=== PATIENT | male | born 1985 | race Caucasian/White ===

== ENCOUNTER 2016-11-25 13:14 | Emergency (ER) | payer OTHER ==
[~2016-11-25] VITALS: Ht 188 cm; Wt 93.0 kg
--- NOTE | 2016-11-25 13:41 | ED UPPER/LOWER EXTREMITY COMPL ---
History of Present Illness General Chief Complaint: Shoulder Injury Stated Complaint: INJURY TO L SHOULDER Source: patient Exam Limitations: no limitations Vital Signs & Intake/Output Vital Signs & Intake/Output ED Intake and Output 11/26 0000 11/25 1200 Intake Total 0 Output Total Balance 0 Intake, IV 0 Patient 205 lb Weight Weight Reported by Patient Measurement Method Allergies Coded Allergies: No Known Allergies (12/13/15) Reconcile Medications Ibuprofen 800 MG TABLET 1 TAB PO TID PRN pain Methocarbamol (Robaxin) 500 MG TABLET 1 TAB PO TID PRN pain Triage Note: PT TO ED FOR L SHOULDER PAIN AFTER MOVING COUCH THIS MORNING. Triage Nurses Notes Reviewed? yes Onset: Abrupt Duration: hour(s): (2), constant, changing over time, continues in ED, getting worse Timing: single episode today Severity: mild, moderate Severity Numbers: 7 Pain/Injury Location: Left: Shoulder. Method of Injury: heavy lifting No Modifying Factors: none Associated Symptoms: none HPI: 31-year-old male witha past medical history presents complaining of pain in his left shoulder that started earlier today. Patient reports that pain started while he was lifting a heavy couch she suddenly felt a pop in the left shoulder and the pain started shortly after that. He denies any direct trauma to the area. Pain is located in the anterior aspect of the left shoulder and radiates down the arm into the second third and fourth digits. It is worse with any type of range of motion of the left upper extremity. He is not taking any medicine for the pain. He rates the pain as a 7 out of 10. He denies any chest pain, shortness of breath, numbness, tingling, fever, weakness, or direct trauma to the area. He denies any previous shoulder injuries. (NEDRA BRITO PA-C) Past History Travel History Traveled to [place] past 21 day No Medical History Any Pertinent Medical History? see below for history Neurological: NONE EENT: NONE Cardiovascular: NONE Respiratory: CHILDHOOD ASTHMA Gastrointestinal: NONE Hepatic: NONE Renal: NONE Musculoskeletal: NONE Psychiatric: NONE Endocrine: NONE Blood Disorders: NONE Cancer(s): NONE Tetanus Vaccine: 12/14/15 Surgical History Surgical History: none Psychosocial History What is your primary language Yoruba Tobacco Use: Never used ETOH Use: occasional use Illicit Drug Use: marijuana Family History Hx Contributory? No (NEDRA BRITO PA-C) Review of Systems Review of Systems Constitutional: Reports: no symptoms. EENTM: Reports: no symptoms. Respiratory: Reports: no symptoms. Cardiovascular: Reports: no symptoms. Gastrointestinal/Abdominal: Reports: no symptoms. Genitourinary: Reports: no symptoms. Musculoskeletal: Reports: see HPI, joint pain (left shoudler ), muscle pain (left shoudler ). Skin: Reports: no symptoms. Neurological/Psychological: Reports: no symptoms. Hematologic/Endocrine: Reports: no symptoms. Immunological: Reports: no symptoms. All Other Systems: Reviewed and Negative (ALISHA VALLADARES,NEDRA) Physical Exam Physical Exam General Appearance: well developed/nourished, no apparent distress, alert, awake Head: atraumatic, normal appearance Eyes: Bilateral: normal appearance, PERRL, EOMI. Ears, Nose, Throat: normal pharynx, normal ENT inspection, hearing grossly normal Neck: normal inspection, supple, full range of motion (pain with lateral flexion ) Cardiovascular/Respiratory: normal breath sounds, normal peripheral pulses, regular rate/rhythm, no respiratory distress Peripheral Pulses: 2+ radial (R), 2+ radial (L), 2+ dorsalis pedis (R), 2+ dorsalis pedis (L) Back: normal inspection, normal range of motion, no vertebral tenderness Shoulder Left: normal range of motion (intact with pain), normal inspection, tenderness (anterior deltoid), soft tissue tenderness (anterior deltoid) Shoulder Right: normal range of motion, normal inspection Elbow Left: normal range of motion, normal inspection Elbow Right: normal range of motion, normal inspection Hand Left: normal inspection, normal range of motion Hand Right: normal inspection, normal range of motion Neurologic/Tendon: normal sensation, normal motor functions, normal tendon functions, responds to pain, no evidence tendon injury, no pulse deficit Skin: intact, normal color, warm/dry Lymphatic: no anterior cervical rebel Comments: Pain with palpation of the left anterior deltoid, left trapezius, and left cervical paraspinous muscles. Full range of motion of the left shoulder is intact with pain during abduction. No swelling, erythema, bruising or gross deformity. Neurovascular supply is intact. Full range of motion of the left elbow and left wrist. (ALISHA VALLADARES,NEDRA) Progress Differential Diagnosis: contusion, dislocation, fracture, sprain, tendon injury, cervical radiculopathy, muscle strain Plan of Care: Orders Procedure Date/time Status Durable Medical Equipment 11/25 1419 Active Patient had x-ray of the left shoulder to rule out a fracture. Otherwise symptoms appear to be muscular. He'll be treated with Ibuprofen and Robaxin with a shoulder immobilizer. X-ray of the left shoulder is within normal limits. Results discussed with patient. He'll be discharged home with ibuprofen and Robaxin along with the shoulder immobilizer. He will follow up with a primary care doctor this week or return to emergency department any concerns. pt will also be referred to ortho. Discussed all results with patient and he agrees with the plan. (NEDRA BRITO PA-C) Diagnostic Imaging: Viewed by Me: Radiology Read. Comments: PATIENT: LUZ MARINA AGUILAR PRESENT AGE: 31 PATIENT ACCOUNT NO: [id number] : 87 LOCATION: [facility] ORDERING PHYSICIAN: NEDRA BRITO PA-C SERVICE DATE: 11/25/16 EXAM TYPE: RAD - XRY-SHOULDER COMPLETE-LEFT EXAMINATION: XR SHOULDER, LEFT CLINICAL INFORMATION: Left shoulder pain after trauma. COMPARISON: None TECHNIQUE: AP external rotation, Grashey, scapular Y, and axillary views of the left shoulder. FINDINGS: Bones have normal alignment at the intact glenohumeral and acromioclavicular joints. No acute fracture, subluxation, arthritic disease or focal soft tissue swelling. There is a bone island of the proximal humeral metaphysis and of the glenoid, as well. The visualized left lung apex is normal. IMPRESSION: No acute findings at the left shoulder. DICTATED BY: ELVIRA GARZA MD DATE/TIME DICTATED:11/25/161419 DIRECTOR OF CONSTRUCTION:RASHEL DATE/TIME TRANSCRIBED:11/25/161419 CONFIDENTIAL, DO NOT COPY WITHOUT APPROPRIATE AUTHORIZATION. <Electronically signed in Other Vendor System> (NEDRA BRITO PA-C) Departure Departure Disposition: HOME OR SELF CARE Condition: Stable Clinical Impression Primary Impression: Left anterior shoulder pain Referrals: PATIENT HAS NO PRIMARY CARE DR (PCP/Family) KRISHAN AVILES,STACY Arriaza. Additional Instructions: rest, avoid heavy lifting, bending or excessive physical actiivty. Apply ice/ heat and use shoulder immobilzer. Ibuprofen and robaxin as directed. make a follwo up appt to review all results of todays visit. return to the emergency department with any concerns. Departure Forms: Customer Survey General Discharge Information Prescriptions: Current Visit Scripts Ibuprofen 1 TAB PO TID PRN pain #30 TAB Methocarbamol (Robaxin) 1 TAB PO TID PRN pain #30 TAB (NEDRA BRITO PA-C) PA/PARTS SALVAGER Co-Sign Statement Statement: ED Attending supervision documentation- [] I saw and evaluated the patient. I have also reviewed all the pertinent lab results and diagnostic results. I agree with the findings and the plan of care as documented in the PA's/PARTS SALVAGER's documentation. [X] I have reviewed the ED Record and agree with the PA's/PARTS SALVAGER's documentation. [] Additions or exceptions (if any) to the PAs/PARTS SALVAGER's note and plan are summarized below: [] (JASSI AVILES,BUD)
--- NOTE | 2016-11-25 14:25 | RADIOLOGY REPORT ---
EXAMINATION: XR SHOULDER, LEFT CLINICAL INFORMATION: Left shoulder pain after trauma. COMPARISON: None TECHNIQUE: AP external rotation, Grashey, scapular Y, and axillary views of the left shoulder. FINDINGS: Bones have normal alignment at the intact glenohumeral and acromioclavicular joints. No acute fracture, subluxation, arthritic disease or focal soft tissue swelling. There is a bone island of the proximal humeral metaphysis and of the glenoid, as well. The visualized left lung apex is normal. IMPRESSION: No acute findings at the left shoulder.
[2016-11-25] MEDS ORDERED: IBUPROFEN800 M1 PO (14:34)
[2016-11-25] MEDS ORDERED: ROBAXIN500 M1 PO (14:34)
[2016-11-25 14:57] VITALS: BP 126/73
== END 2016-11-25 15:01 ==
LOC: ERH 13:14
DX: M25.512 Pain in left shoulder (principal)
CPT/HCPCS: 73030-LT

== ENCOUNTER 2017-10-07 23:23 | Emergency (ER) | payer OTHER ==
[~2017-10-07] VITALS: Ht 189.2 cm; Wt 86.2 kg
[~2017-10-07 23:23] MED LIST: IBUPROFEN800 M1 PO; PERCOCET 5-3251 EACH PO; ROBAXIN500 M1 PO; VALIUM5 M2 PO
[2017-10-07 23:56] VITALS: BP 130/80
--- NOTE | 2017-10-08 00:22 | ED HAND/WRIST INJURY COMPLAINT ---
History of Present Illness General Chief Complaint: Hand or Wrist Injury Stated Complaint: RT THUMB PAIN X'S 2 MTHS/SWELLING Source: patient, old records, friend Exam Limitations: no limitations Vital Signs & Intake/Output Vital Signs & Intake/Output Vital Signs Date Time Temp Pulse Resp B/P B/P Pulse O2 O2 Flow FiO2 Mean Ox Delivery Rate 10/07 2356 97.8 68 18 130/80 97 Room Air ED Intake and Output 10/08 0000 10/07 1200 Intake Total Output Total Balance Patient 190 lb Weight Weight Reported by Patient Measurement Method Allergies Coded Allergies: No Known Allergies (12/13/15) Reconcile Medications Diazepam (Valium) 5 MG TABLET 1 TAB PO BIDP PRN PAIN/MUSCLE SPASM Ibuprofen 800 MG TABLET 1 TAB PO TID PRN PAIN Oxycodone HCl/Acetaminophen (Percocet 5-325 MG Tablet) 5 MG-325 MG TABLET 1 TAB PO BID PRN SHOULDER PAIN Triage Note: TRIAGE: PATIENT TO ER FROM HOME REPORTING FELL ON R THUMB 2 MONTHS AGO, "BENT B ACK AND FELT LIKE IT HEALED GOOD BUT THEN WENT TO GO FRAB A BELT AND PUT WEIGHT ON IT AND A TEAR CAME TO MY EYE." REPORTS +SWELLING AND PAIN SINCE. Triage Nurses Notes Reviewed? yes Occurred: last week Duration: week(s):, constant, continues in ED, getting worse Timing: recent history Injury Environment: street Severity: moderate, severe Pain/Injury Location: Right: 1st finger. Context: fall Method of Injury: fall Modifying Factors: Improves With: immobilization. Worsens With: movement. Associated Symptoms: swelling, GCS 15 since, stiffness HPI: 1 month prior to admission patient recalls falling onto outstretched left thumb with pain swelling limited range of motion that improved after 2 weeks. 5 days prior to admission patient was lifting a belt with his right thumb developing severe sharp pain to right thumb with swelling limited range of motion. He denies fever chills nausea vomiting diarrhea abdominal pain chest pain shortness breath headache dysuria rash bleeding change in sensory function. He is right-hand dominant Past History Travel History Traveled to [place] past 21 day No Medical History Any Pertinent Medical History? see below for history Neurological: NONE EENT: NONE Cardiovascular: NONE Respiratory: CHILDHOOD ASTHMA Gastrointestinal: NONE Hepatic: NONE Renal: NONE Musculoskeletal: NONE Psychiatric: NONE Endocrine: NONE Blood Disorders: NONE Cancer(s): NONE Tetanus Vaccine: 07/09/16 Surgical History Surgical History: none Psychosocial History What is your primary language Norwegian Tobacco Use: Refused to answer Family History Hx Contributory? No Review of Systems Review of Systems Constitutional: Reports: no symptoms. EENTM: Reports: no symptoms. Respiratory: Reports: no symptoms. Cardiovascular: Reports: no symptoms. GI: Reports: no symptoms. Genitourinary: Reports: no symptoms. Musculoskeletal: Reports: see HPI, joint pain, joint swelling. Skin: Reports: no symptoms. Neurological/Psychological: Reports: no symptoms. Hematologic/Endocrine: Reports: no symptoms. Immunologic/Allergic: Reports: no symptoms. All Other Systems: Reviewed and Negative Physical Exam Physical Exam General Appearance: well developed/nourished, alert, awake, anxious, mild distress Head: atraumatic, normal appearance Eyes: Bilateral: normal appearance, PERRL, EOMI. Ears, Nose, Throat: normal pharynx, normal ENT inspection, hearing grossly normal Neck: normal inspection, supple, full range of motion, no midline tenderness Cardiovascular/Respiratory: normal breath sounds, regular rate/rhythm Back: normal inspection, normal range of motion Shoulder Left: normal range of motion, normal inspection Shoulder Right: normal range of motion, normal inspection Elbow Left: normal range of motion, normal inspection Elbow Right: normal range of motion, normal inspection Forearm Left: normal range of motion, normal inspection Forearm Right: normal range of motion, normal inspection Wrist Left: normal range of motion, normal inspection Wrist Right: normal range of motion, normal inspection Hand Left: normal inspection, normal range of motion Hand Right: bone tenderness, limited range of motion, evidence of injury, swelling, tender, 1st finger Reflexes: 2+: bicep (R), bicep (L). Neurologic/Tendon: normal sensation, normal motor functions, normal tendon functions Skin: intact, normal color, warm/dry Lymphatic: no anterior cervical rebel Progress Differential Diagnosis: contusion, dislocation, fracture, sprain Plan of Care: Orders Procedure Date/time Status Durable Medical Equipment 10/08 50 Active Current Medications Sig/Rossi Start time Last Medication Dose Stop Time Status Admin Ibuprofen 600 MG ONCE ONE 10/08 99 UNVr (Motrin) 10/08 100 Diagnostic Imaging: Viewed by Me: Radiology Read. Discussed w/RAD: Radiology Read. Departure Departure Time of Disposition: 52 Disposition: HOME OR SELF CARE Condition: Stable Clinical Impression Primary Impression: Skier's thumb Referrals: Akil Moore MD Departure Forms: Customer Survey General Discharge Information Prescriptions: Current Visit Scripts Ibuprofen 1 TAB PO Q6P PRN pain #30 TAB with food Procedures Splinting Location: right thumb Manual Alignment Performed: No Pre-Made Type: velcro Splint: thumb spica Splint Applied By: splint applied by other Pre-Proc Neuro Vasc Exam: normal Post-Proc Neuro Vasc Exam: normal
--- NOTE | 2017-10-08 00:43 | RADIOLOGY REPORT ---
EXAMINATION: XR FINGER, RIGHT CLINICAL INFORMATION: Right thumb pain and swelling after fall COMPARISON: None TECHNIQUE: 3 views of the right thumb. FINDINGS: Osseous alignment is anatomic. No acute fracture is seen. There are small chronic appearing calcifications at the MCP joint of the thumb with minimal degenerative change. No significant soft tissue abnormality is seen. IMPRESSION: No acute findings identified.
[2017-10-08] MEDS ORDERED: IBUPROFEN600 M1 PO (00:57)
== END 2017-10-08 01:19 ==
LOC: ERH 23:23
DX: S53.31XA Traumatic rupture of right ulnar collateral ligament, initial encounter (principal); X50.9XXA Other and unspecified overexertion or strenuous movements or postures, initial encounter; Y92.9 Unspecified place or not applicable; Y92.410 Unspecified street and highway as the place of occurrence of the external cause
CPT/HCPCS: 73140-RT